=== PATIENT | female | born 1995 | race Two or more races ===

== ENCOUNTER 2022-06-04 17:39 | Emergency (ER) | payer OTHER ==
[~2022-06-04] VITALS: Ht 167.6 cm; Wt 50.0 kg
[2022-06-04] MEDS ORDERED: KETOROLAC TROMETH 30 MG/ML 1ML VIAL IM ONE (18:45)
[2022-06-04 18:46] VITALS: BP 136/86
== END 2022-06-04 19:34 | disposition home or self-care (01) ==
LOC: ER 17:39 → EDBD 17:39 → ER 19:33
DX: S16.1XXA Strain of muscle, fascia and tendon at neck level, initial encounter (principal); M25.512 Pain in left shoulder; X58.XXXA Exposure to other specified factors, initial encounter; Y93.89 Activity, other specified; Y92.89 Other specified places as the place of occurrence of the external cause; Y99.8 Other external cause status
CPT/HCPCS: 72040; 73030; 96372; 99284; J1885